=== PATIENT | male | born 1990 | race Caucasian/White ===

== ENCOUNTER 2025-08-08 10:21 | Emergency (ER) | payer SELFPAY ==
[2025-08-08 10:35] VITALS: BP 125/60; PULSE 79; RESP 16; O2SAT 98; BMI 27.4
--- NOTE | 2025-08-08 10:36 | ED_ITS ---
HPI - Extremity Injury (Lower) General Chief Complaint: Extremity Injury, Lower Stated Complaint: Injured lt foot/dropped 50cal on it Time Seen by Provider: 08/08/25 10:33 History of Present Illness HPI Narrative: Patient is a 35-year-old healthy male presenting today with crush injury to left. Reports that a 50 caliber machine on fell onto his foot. He has significant pain in his little toe he is bleeding quite profusely. No other injury immunizations up-to-date has not taken anything for pain prior to arrival Related Data Previous Rx's ?Medication ?Instructions ?Recorded cephalexin 500 mg capsule 500 mg PO TID #21 caps 08/08 Allergies Allergy/AdvReac Type Severity Reaction Status Date / Time No Known Drug Allergies Allergy Verified 08/08/25 10:35 Patient History Social History Smoking Status: Never smoker Exam Initial Vital Signs Initial Vital Signs: Vital Signs Pulse Rate 79 08/08/25 10:35 Respiratory Rate 16 08/08/25 10:35 Blood Pressure 125/60 08/08/25 10:35 Pulse Oximetry 98 08/08/25 10:35 Oxygen Delivery Method Room Air 08/08/25 10:35 GENERAL: Well-appearing, well-nourished and in no acute distress. CARDIOVASCULAR: peripheral pulses in tact, cap refill <2 sec RESPIRATORY: No respiratory distress, speaks in full sentences without difficulty EXTREMITIES: Normal range of motion, no clubbing or edema. Neurovascularly intact Left significant swelling left little toe with small medial laceration bleeding is controlled. No significant pain in midfoot NEUROLOGICAL: Cranial nerves II through XII grossly intact. Normal gait and speech. SKIN: Left little toe 0.25 cm laceration significantly swollen tender Procedures Laceration Repair Laceration 1: Time of procedure: 13:01 Site: lower extremity (5th toe) Side (If applicable): left Size (cm): 0.25 Description: linear Depth: simple, single layer Local Anesthetic: lidocaine 1% Amount of anesthesia used (mL): 3 Pre-repair: wound explored, irrigated extensively and deep structures intact Skin layer closed with: nylon Skin layer suture size: 5-0 Number of sutures: 2 Technique: simple, interrupted Nerve Block Nerve Block 1: Local Anesthetic: lidocaine 1% Amount of anesthesia used (mL): 3 Side: left Nerve Blocks: digital Procedure Successful: Yes Patient Tolerated Procedure: Well and No complications Complications: none Course Orders Ordered: ED Orders 08/08/25 10:35 XR foot LT min 3V Stat Discontinued Medications Acetaminophen (Acetaminophen 325 Mg Tablet) 975 mg PO NOW ONE Stop: 08/08/25 10:53 Last Admin: 08/08/25 10:59 Dose: 975 mg Documented By: KATHARINEF Hydrocodone Bitart/Acetaminophen (Hydrocodone/Acet 5/325 Tablet) 1 tab PO NOW ONE Stop: 08/08/25 10:36 Last Admin: 08/08/25 11:05 Dose: Not Given Documented By: KATHARINEF Cephalexin HCl (Cephalexin 250 Mg Capsule) 500 mg PO NOW ONE Stop: 08/08/25 12:50 Last Admin: 08/08/25 13:02 Dose: 500 mg Documented By: KATHARINEF Ketorolac Tromethamine (Ketorolac 30 Mg/Ml Vial) 30 mg IM NOW ONE Stop: 08/08/25 10:53 Last Admin: 08/08/25 11:00 Dose: 30 mg Documented By: DONNIE Vital Signs Vital signs: Vital Signs - 8 hr 08/08/25 10:35 Pulse Rate 79 Respiratory Rate 16 Blood Pressure 125/60 Pulse Oximetry 98 Oxygen Delivery Method Room Air MDM - Extremity Injury (Lower) Imaging Data Extremity x-ray #1: Radiologist's Impression: PROCEDURE: XR FOOT LT MIN 3V INDICATIONS: crushed with machine gun little toe open fx TECHNIQUE: 3 views of the foot were acquired. COMPARISON: None. FINDINGS: Bones: Widening of the 5th distal interphalangeal joint with tiny osseous fragments consistent with fracture dislocation. No additional fracture identified. Joint spaces are otherwise maintained Soft tissues: No tibiotalar joint effusion. Achilles tendon appears normal. IMPRESSION: Fracture dislocation at the 5th interphalangeal joint Dictated by: Dariel Cao M.D. on 08/08/2025 at 10:04 [facility] [place] Narrative Medical decision making narrative: Patient is a 35-year-old male presenting today with foot injury. X-ray confirms fracture dislocation. He has a small laceration. Technically an open fracture but possibly from the crush itself. Patient is offered Edwards but declines but does take Toradol and Tylenol which he says helps 1240 [facility] updated on patient's symptoms test results agrees with outpatient follow up orthopedic shoe and antibiotic. Patient was really resistant to any kind of touching initially did not want any kind of blocking however finally agreed to digital block which was then easily cleaned and ultimately decided it needed to sutures. Encouraged outpatient follow-up paperwork is filled out. Discharge Plan Departure Patient Disposition: Home Clinical Impression: Laceration Open fracture of phalanx of left fifth toe Qualifiers: Encounter type: initial encounter Qualified Code(s): S92.502B - Displaced unspecified fracture of left lesser toe(s), initial encounter for open fracture Instructions: Toe Fracture Activity Restrictions/Additional Instructions: *You have been diagnosed with left little toe fracture *What to do: At this time keep elevated as often as possible use crutches as needed where orthopedic shoe, may increase weight-bearing as tolerated Have sutures removed in about 5-7 days keep area clean and dry with soap and water may apply antibiotic ointment *Continue to take medications as directed Keflex 500 mg 3 times a day for 7 days Motrin 600 mg every 6 hours for [id number] pain Tylenol 1000 mg hours for ahiq-on-woysaoza pain *Follow up with your primary care provider in 2-3 days or call [phone] Call [facility] as scheduled follow up appointment. [place] will likely [place] from [place], but you can try and call them tomorrow *Return to ER if you should have increasing pain redness swelling fever or any new, worsening or concerning symptoms Prescriptions: New cephalexin 500 mg capsule 500 mg PO TID Qty: 21 0RF Referrals: Griselda Castro DO [Physician, Orthopedic Surgery] Stand Alone Forms: Patient Portal/API
[2025-08-08] MEDS: ACETAMINOPHEN 325 MG TABLET 975 MG PO (10:59)
[2025-08-08] MEDS: KETOROLAC 30 MG/ML VIAL IM (11:00)
--- NOTE | 2025-08-08 11:20 | PC.NURSE ---
pt has swelling and bruising noted to 4th and 5th toes of left foot, dried blood to foot, ice applied and foot elevated
== END 2025-08-08 13:28 | disposition home or self-care (01) ==
PROVIDERS: Emergency Provider Emergency Medicine
DX: S92.502A Displaced unspecified fracture of left lesser toe(s), initial encounter for closed fracture (principal); S91.115A Laceration without foreign body of left lesser toe(s) without damage to nail, initial encounter; W23.0XXA Caught, crushed, jammed, or pinched between moving objects, initial encounter
CPT/HCPCS: 12001; 73630; 96372; 99283; J1885